=== PATIENT | female | born 1995 | race Two or more races ===

== ENCOUNTER 2018-10-24 18:51 | Emergency (ER) | payer SELFPAY ==
[2018-10-24 19:02] VITALS: BP 131/79
[2018-10-24] MEDS ORDERED: OXYCODONE-ACETAMINOPHEN 5-325 MG TABLET PO ONE (20:40)
[2018-10-24] MEDS ORDERED: LIDOCAINE 2% VISCOUS SOLN 20 ML UDCUP PO ONE (20:41)
--- NOTE | 2018-10-24 20:46 | ER Document Report ---
HPI - HPI Patient complains to provider of: dental infection Time Seen by Provider: 10/24/18 20:11 Pain Level: 5 Context: Well-appearing 23-year-old female in no acute distress presents emergency department with chief complaint of severe toothache of the #30 tooth that is been ongoing for 1 month. She is under the care of a dentist and had a feeling approximately 1 month ago that ultimately failed and led to the need for a root canal. She has a root canal scheduled for this Wednesday. She developed some mild swelling of the lower jaw this morning, called her dentist, who placed her on amoxicillin for which she started taking today. She said the pain got severely worse and the dentist recommended that she seek emergency treatment to assess the need for IV antibiotics. She has no fevers, is able to open her jaw, can speak in clear sentences, respirations are even and unlabored. No neck stiffness - REPRODUCTIVE Reproductive: DENIES: : Past Medical History - Social History Smoking Status: Unknown if Ever Smoked Family History: None Patient has suicidal ideation: No Patient has homicidal ideation: No Renal/ Medical History: Denies: Hx Peritoneal Dialysis Vertical Provider Document - CONSTITUTIONAL Notes: PHYSICAL EXAMINATION: Reviewed vital signs and charting by RN GENERAL: Alert, interacts well. No acute distress. HEAD: Normocephalic, very very mild swelling of the right lower jaw EYES: Pupils equal, round, and reactive to light. Extraocular movements intact. ENT: Oral mucosa moist, tongue midline. No evidence of abscess or any purulent discharge from the gumline, could not palpate an area of fluctuance, no erythema NECK: Full range of motion. Supple. Trachea midline. EXTREMITIES: Moves all 4 extremities spontaneously. No edema, No cyanosis. PSYCH: Normal affect, normal mood. SKIN: Warm, dry, normal turgor. No rashes or lesions noted. - INFECTION CONTROL TRAVEL OUTSIDE OF THE [place] IN LAST 30 DAYS: No Course - Re-evaluation Re-evalutation: 10/24/18 20:56 Overall well-appearing but is in mild distress. 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 She is seeing an painter sign maintenance on Wednesday for the root canal. She is in severe, acute pain is Farhad on antibiotics. For this I have initiated a pain control regimen. She has been improperly taking Motrin so I provided education on the proper use and dosing of Motrin. I also gave her a very short course of Percocet with 1 dose here to he lp mitigate some of her pain until she can get her procedure on Wednesday. I also gave her viscous lidocaine so she can do cottonball soaks for potential topical relief. Patient is already on antibiotics prescribed from her dentist shows no need to prescribe antibiotics at this time. Patient is satisfied with the plan moving forward and I gave her strict return precautions. Stable for discharge - Vital Signs Vital signs: Temp Pulse Resp BP Pulse Ox 98.8 F 75 15 131/79 H 100 10/24/18 19:01 10/24/18 19:01 10/24/18 19:01 10/24/18 19:10/24/18 19:01 Discharge - Discharge Clinical Impression: Pain, dental Condition: Good Disposition: HOME, SELF-CARE Additional Instructions: You were seen in the emergency department this evening for dental pain. Because you are already on antibiotics and you already have a dental care plan there is no need for antibiotics here in the emergency department. Based on your clinical presentation IV antibiotics are not indicated at this time. The plan right now is pain control. As we discussed at length please do not take too much Motrin as it can cause gastritis and an ulcer in your stomach. Take Motrin 600 mg every 6 hours with food or milk. I have given you a short course of pain medication canal this week. There is 325 mg of Tylenol in the pain medication. Please adjust your Tylenol dosing accordingly and do not take more than 1000 mg of Tylenol at any one time. The maximum daily dose of Tylenol is 4 g. Please take this into consideration. If you develop high fever, increased swelling, respiratory compromise where your throat feels like it is starting to close up, you have trismus and cannot open your jaw at all, or you have any other concerning symptoms please come back to the emergency department for reevaluation. Prescriptions: Oxycodone HCl/Acetaminophen [Percocet 5-325 mg Tablet] 1 tab PO Q6H PRN #12 tab PRN Reason:
== END 2018-10-24 21:05 | disposition home or self-care (01) ==
LOC: ER 18:51
DX: K08.9 Disorder of teeth and supporting structures, unspecified (principal)
CPT/HCPCS: 99282; J3490